=== PATIENT | female | born 1945 | race Caucasian/White ===

== ENCOUNTER 2016-12-20 05:30 | Emergency (ER) | payer MEDICARE, OTHER ==
--- NOTE | 2016-12-20 06:07 | ERNOTE ---
Chest Pain/Cardiac HPI Date of Service: 12/20/16 Chief Complaint: Chest Pain Time Seen by Provider: 12/20/16 05:31 Source: patient Exam Limitations: no limitations Immunizations: IMMUNIZATION HX Immunizations Up to Date Yes History of Influenza Vaccine No Hx Pneumococcal Vaccination No Allergies/Adverse Reactions: Allergies codeine Allergy (Intermediate, Verified 12/20/16 05:50) Hives Penicillins Allergy (Intermediate, Verified 12/20/16 05:50) Hives Home Medications: HOME MEDICATIONS Ibuprofen [Motrin] 600 mg PO TID PRN #30 tab 12/20/16 [Last Taken Unknown] Latanoprost 2.5 ml OP DAILY 12/20/16 [Last Taken Unknown] Philip-3/Dha/Epa/Fish Oil [Fish Oil 1,000 mg Softgel] 1,000 mg PO BID 12/20/16 [ Last Taken Unknown] Triamterene [Dyrenium] 50 mg PO DAILY 12/20/16 [Last Taken Unknown] Narrative: Here for a right sided mid back and right sided chest pain just under right breast which began at 0 100 today and is rated as an 8 out of 10. She denies any shortness of breath or trauma or diaphoresis. She states that the severe right-sided chest pain woke her up from sleep. Review of Systems - Review of Systems Constitutional: Present: no symptoms reported EYE: Present: no symptoms reported ENT: Present: no symptoms reported Respiratory: Present: no symptoms reported Cardiology: Present: other - H and has chest wall pain on the right side Gastrointestinal/Abdominal: Present: no symptoms reported Genitourinary: Present: no symptoms reported Musculoskeletal: Present: no symptoms reported Skin: Present: no symptoms reported - Patient's Past Medical History Patient History - Medical: No pertinent hx Patient History - Cardiac/Respiratory: Hyperlipidemia Patient History - Cancer: No Hx of Cancer Patient History - Surgical Procedures: Hysterectomy Patient History - Other: None - Family History Mother Family History - Medical: Diabetes Type 2 Insulin Dependent Family History - Cardiac/Respiratory: No pertinent hx Family History - Cancer: No pertinent family hx Brother Family History - Cardiac/Respiratory: Myocardial Infarction Family History - Cancer: Lung - Social History Living Situations: alone Abuse History: No History of abuse Psych History: No pertinent hx Smoking Status: Former smoker Have you smoked in the past 12 months: No Do you dip or chew tobacco: No Patient requests Smoking Cessation Consult: No Initiate information on Smoking Cessation: No Alcohol Use: occasionally Drug Use: none - Immunizations Immunizations Up to Date: Yes Hx Pneumococcal Vaccination: No History of Influenza Vaccine: No Physical Exam - Physical Exam General Appearance: Present: wd/wn, alert, no apparent distress Head Exam: Present: normal inspection Neck: Present: normal inspection, nontender Respiratory: Present: no respiratory distress, normal breath sounds, no accessory muscle use, chest nontender, lungs clear Cardiovascular/Chest: Present: regular rate, rhythm, no murmur, normal peripheral pulses, other - this patient has chest wall pain on my examination upon pressure on the right side in the midclavicular line of ribs #67 and 8. There appears to be no bruising or deformity or crepitus there are no vesicular lesions in the distribution where the patient has pain. Patient also has pain in the right paravertebral area in the thoracic region corresponding to ribs # 67 and 8. EKG at the time the patient had her chest pain is a normal sinus rhythm no ST-T changes Back Exam: Present: normal inspection, no CVA tenderness Extremity Exam: Present: normal inspection, normal range of motion ED Progress - Results and Orders Patient's Lab Results:: I have reviewed the patient's lab results. - Vital Signs Patient's Vital Signs:: I have reviewed the patient's vital signs. Vital Signs: Vital Signs 12/20/16 05:39 Temperature 36.4 C L Pulse Rate 56 L Respiratory 18 Rate Blood Pressure 177/75 O2 Sat by Pulse 99 Oximetry - EKG EKG: NSR - this patient's EKG reveals normal sinus rhythm. - X-Ray X-Ray #1 X-Ray: chest - Progress/Reassessment Chief Complaint: Chest Pain Plan - Plan Plan: Based on my examination of this patient's clinical picture it is this examiner' s opinion that the patient has a condition called costochondritis. She is acutely tender in the right chest wall region. I am able to reproduce the exact kind of pain that she is having. She will be treated accordingly. Departure Clinical Impression: Costochondritis, acute - Departure Disposition: Home self-care Condition: Stable Instructions: Costochondritis, [id number] Prescriptions: Ibuprofen [Motrin] 600 mg PO TID PRN #30 tab PRN Reason: Pain
[2016-12-20 06:13] LABS: Hematocrit 37.7 % (37.0-47.0); Hemoglobin 13.1 gm/dL (12.5-16.0); Mean Cell Volume 93.1 fl (78-100); Mean Corpuscular Hemoglobin 32.3 pg (27-31); Mean Corpuscular Hgb Conc 34.7 g/dl (32-36); Mean Platelet Volume 9.9 fl (6.0-9.5); Neutrophil # 4.9 K/mm3 (1.3-6.0); Neutrophil % 80.3 % (42-75.0); Platelet Count 240 K/mm3 (150-450); Red Blood Count 4.05 M/mm3 (4.2-5.4); Red Cell Distribution Width 11.6 % (11.5-14.0); White Blood Count 6.1 K/mm3 (4.0-10.5)
[2016-12-20 06:39] LABS: ALT 30 U/L (19-67); AST 25 U/L (0-48); Albumin * 3.7 gm/dl (3.4-5.0); Alkaline Phosphatase * 51 U/L (50-170); Anion Gap 16.2 mmol/L (6.8-13.8); Bilirubin, Total 0.4 mg/dL (0.0-1.1); Blood Urea Nitrogen 19 mg/dL (3-23); CKMB 1.5 ng/mL (0.0-9.0); Ca. Corrected For Albumin 8.8 mg/dL (8.4-10.2); Calcium * 8.9 mg/dL (7.9-10.9); Carbon Dioxide 27.2 mmol/L (24-32.6); Chloride 97 mmol/L (97-106); Glucose * 133 mg/dL (70-110); Potassium 3.4 mmol/L (3.4-4.6); Sodium 137 mmol/L (132-142); Total Protein 7.3 gm/dL (6.2-8.2); Troponin I Less than 0.017 ng/ml (0.00-0.10)
[2016-12-20] MEDS ORDERED: ONDANSETRON 4 MG TAB.RAPDIS ONE (06:39)
[2016-12-20] MEDS ORDERED: ONDANSETRON 4 MG TAB.RAPDIS PO ONE (06:40)
[2016-12-20 06:52] VITALS: BP 154/82
[2016-12-20] MEDS ORDERED: KETOROLAC TROMETHAMINE 30 MG/ML VIAL ONE (06:54)
[2016-12-20] MEDS ORDERED: KETOROLAC TROMETHAMINE 30 MG/ML VIAL IM ONE ×2 (06:55→06:58)
== END 2016-12-20 07:13 | disposition home or self-care (01) ==
LOC: ER 05:30
DX: M94.0 Chondrocostal junction syndrome [Tietze] (principal)

== ENCOUNTER 2016-12-21 19:46 | Observation (INO) | payer MEDICARE, OTHER ==
--- NOTE | 2016-12-21 21:43 | ERNOTE ---
Abdominal HPI - General Chief Complaint: Abdominal Pain Time Seen by Provider: 12/21/16 20:47 Source: patient Exam Limitations: no limitations - Immun/Allergies/Home Medications Immunizatons: IMMUNIZATION HX Immunizations Up to Date No History of Influenza Vaccine No Hx Pneumococcal Vaccination No Allergies/Adverse Reactions: Allergies codeine Allergy (Intermediate, Verified 12/20/16 05:50) Hives Penicillins Allergy (Intermediate, Verified 12/20/16 05:50) Hives Home Medications: HOME MEDICATIONS Ibuprofen [Motrin] 600 mg PO TID PRN #30 tab 12/20/16 [Last Taken Unknown] Latanoprost 2.5 ml OP DAILY 12/20/16 [Last Taken Unknown] [place]-3/Dha/Epa/Fish Oil [Fish Oil 1,000 mg Softgel] 1,000 mg PO BID 12/20/16 [ Last Taken Unknown] Triamterene [Dyrenium] 50 mg PO DAILY 12/20/16 [Last Taken Unknown] - History of Present Illness Narrative: Pt had right subscapular pain a few days ago. Yesterday she was seen in this ED with right lower rib/ RUQ abdominal pain, labs were unremarkable and she was dx with costochondritis and told to follow up with her PCP. Her PCP ordered an u/s and CBC today. U/S showed tiny gallstones, sludge, gallbladder wall edema and tiny pericholecystic fluid, WBC 21k. She was told to present to the ED, since they do not have a surgeon commercial sales consultant tonight she did not go to [facility] where the studies were done today and came back here. Timing: getting worse Quality: severe, aching Activities at Onset: none Modifying Factors - (Improves): Present: analgesics - helped only a little Modifying Factors - (Worsens): Present: movement Associated Symptoms: Present: nausea. Absent: vomiting Prior Abdominal Problems: Present: none Prior Treatment: Present: recently seen, treated by physician, currently on antibiotics Review of Systems - Review of Systems Constitutional: Absent: fever, chills EYE: Present: no symptoms reported ENT: Present: no symptoms reported Respiratory: Absent: shortness of breath, cough Cardiology: Absent: chest pain Gastrointestinal/Abdominal: Present: See HPI, nausea, abdominal pain, other - was NPO before her U/S but has had a bottle of water since then.. Absent: vomiting, diarrhea Genitourinary: Absent: frequency, dysuria Musculoskeletal: Present: back pain - right subscapular Skin: Present: no symptoms reported Neurological: Present: no symptoms reported Endocrine: Present: no symptoms reported Hematologic/Lymphatic: Present: no symptoms reported Psych: Present: no symptoms reported - Patient's Past Medical History Patient History - Medical: No pertinent hx Patient History - Cardiac/Respiratory: Hyperlipidemia Patient History - Cancer: No Hx of Cancer Patient History - Surgical Procedures: Hysterectomy Patient History - Other: None LMP (females 10-50): Menopausal - Family History Mother Family History - Medical: Diabetes Type 2 Insulin Dependent Family History - Cardiac/Respiratory: No pertinent hx Family History - Cancer: No pertinent family hx Brother Family History - Cardiac/Respiratory: Myocardial Infarction Family History - Cancer: Lung - Social History Abuse History: No History of abuse Psych History: No pertinent hx Smoking Status: Former smoker Have you smoked in the past 12 months: No Do you dip or chew tobacco: No Smoking Stop Date: 12/21/66 Patient requests Smoking Cessation Consult: No Initiate information on Smoking Cessation: No - Immunizations Immunizations Up to Date: No Hx Pneumococcal Vaccination: No History of Influenza Vaccine: No Physical Exam - Physical Exam General Appearance: Present: wd/wn, alert, no apparent distress Head Exam: Present: normal inspection Ears, Nose, Throat: Present: normal ENT inspection Neck: Present: normal inspection, nontender, supple Respiratory: Present: no respiratory distress, normal breath sounds, lungs clear Cardiovascular/Chest: Present: regular rate, rhythm, no murmur, normal peripheral pulses Gastrointestinal/Abdominal: Present: tenderness - RUQ most tender, also tender LUQ and RLQ. , abnormal bowel sounds - hypoactive, guarding - mild. Absent: distended, rebound Extremity Exam: Present: normal inspection, non-tender, normal range of motion, no edema Neurological Exam: Present: alert, oriented, normal mood/affect, no motor/ sensory deficits Skin Exam: Present: normal color, warm/dry Lymphatic Exam: Present: no adenopathy ED Progress - Results and Orders Patient's Lab Results:: I have reviewed the patient's lab results. Results and Orders: labs from [facility] show WBC: 21.2, H/H 14/41, PLATELETS: 260, 88% Neuts. CMP WNL except slight elevation of ALT at 37, and biliruben 1.7 - Vital Signs Patient's Vital Signs:: I have reviewed the patient's vital signs. Vital Signs: Vital Signs 12/21/16 20:17 Temperature 36.5 C Pulse Rate 90 Respiratory 18 Rate Blood Pressure 113/75 O2 Sat by Pulse 95 Oximetry - CT/Ultrasound CT/Ultrasound Narrative: U/S report from [facility]: tiny gallstones and sludge in the gallbladder assoc with gallbladder wall edema and questionable tiny pericholecystic fluid collection. CBD normal size, no hepatic duct dilation, no biliary obstruction. pancreas and right kidney normal. - Progress/Reassessment Chief Complaint: Abdominal Pain Progress Note-Subjective: 12/21/16 21:[address] Gregorio and he requested we admit the patient to the hospitalist and he will see the patient in the morning. Spoke with Debi MYERS hospitalist. She agrees with admit. Departure Clinical Impression: Cholecystitis with cholelithiasis Qualifiers: Cholelithiasis location: gallbladder Cholecystitis acuity: acute Biliary obstruction: without biliary obstruction Qualified Code(s): K80.00 - Calculus of gallbladder with acute cholecystitis without obstruction - Departure Disposition: [facility] Condition: Good
--- NOTE | 2016-12-21 21:55 | HP ---
Chief Complaint - Chief Complaint Date of Service: 12/21/16 Time of Service: 21:54 Chief Complaint: Abdominal pain History of Present Illness: 71 years old female adm to the hospital with reports of right upper quadrant pain radiating to the umbilicus x 2day. PMH significant for glaucoma and chronic edema. Pt stated she was at [facility] ER yesterday for abdominal pain. She was instructed to follow up with PCP upon discharge. She saw PCP did labs and US abdomen. She continued to have abdominal pain that was getting progressively worst. she was called by PCP office with lab results and instructed to come to the ER. She have significant increased of WBC since yesterday from 6k--->22K. U/ S report from [facility]: tiny gallstones and sludge in the gallbladder assoc with gallbladder wall edema and questionable tiny pericholecystic fluid collection. CBD normal size, no hepatic duct dilation, no biliary obstruction. pancreas and right kidney normal.12/21/16 WBC 6k----> 21.2K trending up. Pt denies fever, chills, palpitation, cough, nausea or vomiting. Plan of care discussed with pt she verbalized understanding and agrees. - Patient's Past Medical History Patient History - Medical: No pertinent hx, Glaucoma, Other - chronic edema Patient History - Cardiac/Respiratory: Hyperlipidemia Patient History - Cancer: No Hx of Cancer Patient History - Surgical Procedures: Hysterectomy Patient History - Other: None LMP (females 10-50): Menopausal - Family History Mother Family History - Medical: Diabetes Type 2 Insulin Dependent Family History - Cardiac/Respiratory: No pertinent hx Family History - Cancer: No pertinent family hx Brother Family History - Cardiac/Respiratory: Myocardial Infarction Family History - Cancer: Lung - Social History Living Situations: alone Abuse History: No History of abuse Psych History: No pertinent hx Smoking Status: Former smoker Have you smoked in the past 12 months: No Do you dip or chew tobacco: No Smoking Stop Date: 12/21/66 Patient requests Smoking Cessation Consult: No Initiate information on Smoking Cessation: No - Immunizations Immunizations Up to Date: No Hx Pneumococcal Vaccination: No History of Influenza Vaccine: No Review Of Systems (GEN) - Review of Systems Generalized/Overall Review: Present: No Symptoms Reported EENTM: Present: No Symptoms Reported Respiratory: Present: No Symptoms Reported Cardiac: Present: No Symptoms Reported Abdominal: Present: Abdominal Pain, Other - No appetite Genitourinary: Present: No Symptoms Reported Musculoskeletal: Present: No Symptoms Reported Neurological: Present: No Symptoms Reported Skin: Present: No Symptoms Reported Endocrine: Present: No Symptoms Reported Immunizations: IMMUNIZATION HX Immunizations Up to Date No History of Influenza Vaccine No Hx Pneumococcal Vaccination No Allergies/Adverse Reactions: Allergies Allergy/AdvReac Type Severity Reaction Status Date / Time codeine Allergy Intermediate Hives Verified 12/20/16 05:50 Penicillins Allergy Intermediate Hives Verified 12/20/16 05:50 Home Medications: HOME MEDICATIONS Ibuprofen [Motrin] 600 mg PO TID PRN #30 tab 12/20/16 [Last Taken Unknown] Latanoprost 2.5 ml OP DAILY 12/20/16 [Last Taken Unknown] [place]-3/Dha/Epa/Fish Oil [Fish Oil 1,000 mg Softgel] 1,000 mg PO BID 12/20/16 [ Last Taken Unknown] Triamterene [Dyrenium] 50 mg PO DAILY 12/20/16 [Last Taken Unknown] Exam - Exam Vital Signs: Vital Signs - Last Taken Temp 36.5 C 12/21/16 20:17 Pulse 74 12/21/16 21:32 Resp 13 12/21/16 21:32 BP 116/74 12/21/16 21:32 Pulse Ox 91 12/21/16 21:32 Constitutional: Present: Alert, Oriented x3, Cooperative, Well developed, No distress, Elderly ENT Exam: Present: hearing grossly normal Eye Exam: bilateral eye: normal inspection, other Back Exam: Present: normal inspection, no CVA tenderness Breasts: Present: Exam deferred Respiratory: Present: chest non-tender, lungs clear, normal breath sounds, no respiratory distress Cardiovascular/Chest: Present: normal peripheral pulses, regular rate, rhythm, no chest tenderness, no edema Peripheral Pulses: dorsalis-pedis (R): 3+, dorsalis-pedis (L): 3+ Abdomen: Present: Normal bowel sounds, soft, nondistended, tender, guarding, positive Varghese sign, hypoactive /Rectal: Present: Exam deferred Extremity: Present: normal range of motion, non-tender, normal inspection, no calf tenderness Skin Exam: Present: warm/dry Neurologic: Present: oriented x 3 Appearance: Present: appropriate appearance, appropriate insight Eye contact: Present: cooperative, good eye contact Thoughts: Present: normal thought pattern, no apparent hallucination Assessment/Plan - Narrative Narrative: Acute cholecystitis RUQ abdominal pain with +Varghese sign. Outside facility US ABD: Tiny gallstones and sludge in the gallbladder assoc with gallbladder wall edema and questionable tiny pericholecystic fluid collection. CBD normal size, no hepatic duct dilation, no biliary obstruction. pancreas and right kidney normal. Continue with IVF Keep NPO until seen by Surgeon On adm WBC 21.2, neutrophils 88.6, ALT/ AST--> 37/30 IV Flagyl x1 was given in ER. Discussed Antbx with Dr. Bailey Mefoxin 2g Q6 Glaucoma may resume home dose of eye drop. Code status: Full VTE ppx: SCD and ambulate Total Time 45 minutes, previous records available to me were reviewed and case discussed with Dr. Bailey. - Assessment/Plan (1) Cholecystitis with cholelithiasis Problem: Acute Qualifiers: Cholelithiasis location: gallbladder Cholecystitis acuity: acute Biliary obstruction: without biliary obstruction Qualified Code(s): K80.00 - Calculus of gallbladder with acute cholecystitis without obstruction (2) Costochondritis, acute Problem: Acute (3) Glaucoma Problem: Chronic
[2016-12-21] MEDS ORDERED: NORMAL SALINE 1,000 ML IV PRN (23:09)
[2016-12-22] MEDS: metroNIDAZOLE/SODIUM CHLORIDE 500 MG/100 ML BAG IV SCH ×2 (00:11→05:59)
[2016-12-22] MEDS: POTASSIUM CHLORIDE 20 MEQ in DEXTROSE 5%-NORMAL SALINE 1,000 ML IV SCH ×2 (00:33→09:02)
[2016-12-22] MEDS: CEFOXITIN SODIUM 2 GM in DEXTROSE 5 % IN WATER 100 ML IV SCH ×12 (01:04→19:33)
[2016-12-22 05:19] LABS: Hematocrit 36.5 % (37.0-47.0); Hemoglobin 12.5 gm/dL (12.5-16.0); Mean Cell Volume 95.1 fl (78-100); Mean Corpuscular Hemoglobin 32.6 pg (27-31); Mean Corpuscular Hgb Conc 34.2 g/dl (32-36); Mean Platelet Volume 10.2 fl (6.0-9.5); Neutrophil # 12.7 K/mm3 (1.3-6.0); Neutrophil % 84.7 % (42-75.0); Platelet Count 208 K/mm3 (150-450); Red Blood Count 3.84 M/mm3 (4.2-5.4); Red Cell Distribution Width 12.3 % (11.5-14.0)
[2016-12-22 06:30] LABS: BUN/Creatinine Ratio 10.8 (9.0-21.6); Calcium * 8.7 mg/dL (7.9-10.9); Carbon Dioxide 31.1 mmol/L (24-32.6); Estimated Creat Clear 38.9; Potassium 3.1 mmol/L (3.4-4.6)
[2016-12-22] MEDS ORDERED: POTASSIUM CHLORIDE 40 MEQ in DEXTROSE 5%-NORMAL SALINE 980 ML IV SCH (08:15)
[2016-12-22] MEDS ORDERED: LATANOPROST 25 DROP BTL OP SCH (09:00)
[2016-12-22] MEDS: POTASSIUM CHLORIDE 40 MEQ in DEXTROSE 5%-NORMAL SALINE 980 ML IV SCH ×2 (09:01→20:31)
--- NOTE | 2016-12-22 14:49 | CONS ---
[facility] - General Date of Service: 12/22/16 Narrative: This patient presented to the ER last night with a several day history of RUQ pain originally thought to be costochondritis. She was seen by her primary who ordered an ultrasound that showed small gallstones and sludge, wall thickening, a trace of pericholecystic fluid and a normal common bile duct. Her white count had risen to 20K. She was admitted with a diagnosis of acute cholecystitis, rehydration, pain control and a brief cooling off period. She states that her pain has improved significantly from last night. Her WBC has come down to 15K. Source: patient, RN/MD - History of Present Illness Allergies/Adverse Reactions: Allergies codeine Allergy (Intermediate, Verified 12/20/16 05:50) Hives Penicillins Allergy (Intermediate, Verified 12/20/16 05:50) Hives Home Medications: Home Medications Medication Instructions Recorded Last Taken Latanoprost 2.5 ml OP DAILY 12/20/16 Unknown Virgie-3/Dha/Epa/Fish Oil [Fish Oil 1,000 mg PO BID 12/20/16 Unknown 1,000 mg Softgel] Triamterene [Dyrenium] 50 mg PO DAILY 12/20/16 Unknown - Patient's Past Medical History Patient History - Medical: No pertinent hx, Glaucoma, Other - chronic edema Patient History - Cardiac/Respiratory: Hyperlipidemia Patient History - Cancer: No Hx of Cancer Patient History - Surgical Procedures: Hysterectomy Patient History - Other: None LMP (females 10-50): Menopausal - Family History Mother Family History - Medical: Diabetes Type 2 Insulin Dependent Family History - Cardiac/Respiratory: No pertinent hx Family History - Cancer: No pertinent family hx Brother Family History - Medical: Diabetes Type 1 Family History - Cardiac/Respiratory: Myocardial Infarction Family History - Cancer: Lung - Social History Living Situations: alone Abuse History: No History of abuse Psych History: No pertinent hx Smoking Status: Former smoker Have you smoked in the past 12 months: No Do you dip or chew tobacco: No Smoking Start Date: 02/08/63 Smoking Stop Date: 12/21/66 Patient requests Smoking Cessation Consult: No Initiate information on Smoking Cessation: No - Immunizations Immunizations Up to Date: No Hx Pneumococcal Vaccination: No History of Influenza Vaccine: No Procedures CATARAC PHACOEMULS/ASPIR (02/23/11) COLONOSCOPY (09/01/06) ENDO EXCISION/DEST OF LESION OR TISSUE OF STOMACH (08/29/08) ESOPHAGOGASTRODUODENOSCOPY [EGD] W/CLOSED BIOPSY (09/01/06) INSERT LENS AT CATAR EXT (02/23/11) Medications - Medications Current Medications: Current Medications Cefoxitin Sodium 2 gm/ (Dextrose/Water) 100 mls @ 200 mls/hr IV Q6H HUANG PRN Reason: Protocol Stop: 01/21/17 00:31 Last Admin: 12/22/16 12:12 Dose: 200 mls/hr Potassium Chloride 40 meq/ (Dextrose/Sodium Chloride) 1,000 mls @ 125 mls/hr IV .Q8H HUANG Stop: 01/21/17 08:31 Last Admin: 12/22/16 09:01 Dose: 125 mls/hr Review of Systems - Review of Systems Abdominal: Present: Abdominal Pain Misc: All systems neg except as marked Physical Examination - Exam Vital Signs: Vital Signs - Last Taken Temp 36.8 C 12/22/16 11:14 Pulse 86 12/22/16 11:14 Resp 18 12/22/16 11:14 BP 106/58 12/22/16 11:14 Pulse Ox 96 12/22/16 11:14 O2 Oxygen Delivery Method Room Air Constitutional: Present: Alert, Oriented x3, Cooperative, Well developed, Well nourished, No distress ENT Exam: Present: normal ENT inspection Eye Exam: bilateral eye: normal inspection Neck: Present: full range of motion, supple Respiratory: Present: no respiratory distress, no accessory muscle use Abdomen: Present: soft, nondistended, tender - RUQ /Rectal: Present: Exam deferred Skin Exam: Present: normal color, warm/dry Neurologic: Present: no motor/sensory deficits - Results and Findings: Lab/Microbiology results last 24 hrs: Abnormal/Pending Laboratory Last 24 HRS 12/22/16 12/22/16 05:45 05:17 WBC 15.0 H D RBC 3.84 L Hct 36.5 L MCH 32.6 H MPV 10.2 H Immature Gran % (Auto) 0.50 H Immature Gran # (Auto) 0.08 H Neutrophils % 84.7 H Lymphocytes % 9.0 L Neutrophils # 12.7 H Lymphocytes # 1.4 L Potassium 3.1 L Est GFR (Non-Af Amer) 56 L Random Glucose 129 H - Assessments/Findings (1) Cholecystitis with cholelithiasis Diagnosis(s): Recommend laparoscopic cholecystectomy. The options, risks, and benefits of the procedure were reviewed fully. She seems to understand, asks appropriate questions, and desires to proceed. Problem: Acute Qualifiers: Cholelithiasis location: gallbladder Cholecystitis acuity: acute Biliary obstruction: without biliary obstruction Qualified Code(s): K80.00 - Calculus of gallbladder with acute cholecystitis without obstruction
[2016-12-22] MEDS ORDERED: RINGER'S SOLUTION,LACTATED 1,000 ML IV ONE ×3 (16:55→17:44)
[2016-12-22] MEDS ORDERED: BUPIVACAINE HCL 50 ML VIAL IJ ONE ×2 (17:15)
--- NOTE | 2016-12-22 18:56 | OR ---
Operative Report - Dictated Report Narrative: Date: 12/22/2016 Preop dx: Acute cholecystitis Postop dx: same Procedure: Laparoscopic cholecystectomy Staff surgeon: Kwabena Ortiz MD Anesthesia: GETA EBL: 50cc Drains: none Specimens: gallbladder Description: Following the smooth induction of general endotracheal the abdomen was prepped and draped in a sterile fashion. All port sites were anesthetized with marcaine prior to incision. The abdomen was entered through a 5mm infraumbilical incision using a blunt port with a scope within the lumen of the trocar. The abdomen was insufflated to a pressure of 15mmHg. A superior midline 12mm port was inserted under direct vision as was two right flank 5mm ports. Omentum and transverse colon were densely adherent to the undersurface of the fundus. These were meticulously taken down with blunt dissection. There was a thick rind of fibrin on the omentum. Once exposed the fundus was cannulated percutaneously with a needle and drained of bilious fluid. This allowed a grasper on the fundus which was elevated toward the diaphragm. The duodenum was adherent to the infundibulum and this was taken down with blunt dissection. The stomach was adherent to the medial gallbladder and undersurface of the liver to the ligamentum teres and these were taken down with blunt dissection. The gallbladder was quite thickened and hepatized. The infundibulum was grasped for countertraction. The cystic duct was isolated and clipped with four clips and divided. The cystic artery was isolated doubly clipped and divided. The gallbladder was then taken out of the fossa with blunt, scissor, and electrocautery dissection. Once liberated the gallbladder was placed in an endocatch bag. The superior midline port site was enlarged to allow egress of this significantly enlarged gallbladder. The peritoneal cavity was once again inspected. Hemostasis appeared adequate. The was no apparent bile leak. No significant purulence was encountered during the course of this procedure, only inflammatory changes, and a drain was deemed unnecessary. The pneumoperitoneum was released and port sites removed. The fascia of the upper midline port was closed with interrupted 0 Vicryl suture. Incisions closed with david and sterile dressings applied. The patient tolerated the procedure well without apparent complications and was discharged from the operating room in stable condition.
[2016-12-22] MEDS ORDERED: MORPHINE SULFATE 4 MG/ML SYRG IV PRN (18:59)
[2016-12-22] MEDS ORDERED: ONDANSETRON HCL/PF 2 MG/ML VIAL IV PRN (19:01)
[2016-12-22] MEDS: KETOROLAC TROMETHAMINE 15 MG/ML VIAL IV SCH (19:52)
[2016-12-22] MEDS: LATANOPROST 25 DROP BTL OP SCH (20:33)
[2016-12-23] MEDS: KETOROLAC TROMETHAMINE 15 MG/ML VIAL IV SCH ×4 (01:16→21:12)
[2016-12-23] MEDS: CEFOXITIN SODIUM 2 GM in DEXTROSE 5 % IN WATER 100 ML IV SCH ×6 (03:24→21:12)
[2016-12-23] MEDS: POTASSIUM CHLORIDE 40 MEQ in DEXTROSE 5%-NORMAL SALINE 980 ML IV SCH ×2 (05:08→09:27)
[2016-12-23 05:33] LABS: Hematocrit 34.6 % (37.0-47.0); Hemoglobin 11.6 gm/dL (12.5-16.0); Mean Cell Volume 96.1 fl (78-100); Mean Corpuscular Hemoglobin 32.2 pg (27-31); Mean Corpuscular Hgb Conc 33.5 g/dl (32-36); Mean Platelet Volume 10.6 fl (6.0-9.5); Neutrophil # 10.5 K/mm3 (1.3-6.0); Neutrophil % 94.6 % (42-75.0); Platelet Count 244 K/mm3 (150-450); Red Cell Distribution Width 12.1 % (11.5-14.0); White Blood Count 11.1 K/mm3 (4.0-10.5)
[2016-12-23 05:45] LABS: BUN/Creatinine Ratio 8.2 (9.0-21.6); Calcium * 8.3 mg/dL (7.9-10.9); Carbon Dioxide 24.2 mmol/L (24-32.6); Estimated Creat Clear 32.5; Potassium 4.2 mmol/L (3.4-4.6)
--- NOTE | 2016-12-23 06:14 | PN ---
Subjective - Date and Time Seen Date: 12/23/16 Time: 06:07 Subjective Narrative: Mrs. Acuña examined this am. She is alert and in no distress. POD # 1 for lap Cholecystectomy. Pain is well controlled with meds. Denies n/v, abd pain. Has not ambulated much. No other concerns. Objective - Vitals Vitals: Last Vital Signs Temp 36.7 C 12/23/16 02:55 Pulse 82 12/23/16 04:55 Resp 16 12/23/16 04:55 BP 120/70 12/23/16 04:55 Pulse Ox 95 12/23/16 04:55 - Abnormal Lab Findings Abnormal Lab Findings: Abnormal Lab Results 12/22/16 12/23/16 12/23/16 Range/Units 05:45 05:29 05:29 WBC 11.1 H D (4.0-10.5) K/mm3 RBC 3.60 L (4.2-5.4) M/mm3 Hgb 11.6 L (12.5-16.0) gm/dL Hct 34.6 L (37.0-47.0) % MCH 32.2 H (27-31) pg MPV 10.6 H (6.0-9.5) fl Immature Gran % (Auto) 0.60 H (0.001-0.429) % Immature Gran # (Auto) 0.07 H (0.000-0.0310) K/mm3 Neutrophils % 94.6 H (42-75.0) % Lymphocytes % 3.3 L (20-51) % Neutrophils # 10.5 H (1.3-6.0) K/mm3 Lymphocytes # 0.4 L (1.5-3.5) k/mm3 Potassium 3.1 L (3.4-4.6) mmol/L Est GFR (Non-Af Amer) 56 L 46 L (60-130) mL/min BUN/Creatinine Ratio 8.2 L (9.0-21.6) Random Glucose 129 H 213 H D (70-110) mg/dL - Exam Constitutional: Present: Alert, Oriented x3, Cooperative, No distress ENT Exam: Present: normal ENT inspection Neck: Present: non-tender, full range of motion, supple Breasts: Present: Exam deferred Respiratory: Present: lungs clear, No rales, No wheezing Cardiovascular/Chest: Present: regular rate, rhythm, no chest tenderness, no edema Abdomen: Present: soft, other - hypoactive bowel sounds. /Rectal: Present: Exam deferred Extremity: Present: normal range of motion, non-tender, normal inspection Skin Exam: Present: warm/dry, no cyanosis Lymphatic: Present: no adenopathy Neurologic: Present: alert, normal mood/affect, oriented x 3 Appearance: Present: appropriate appearance, appropriate insight Eye contact: Present: cooperative, good eye contact, normal speech Thoughts: Present: normal thought pattern, no apparent hallucination Assessment/Plan - Problems/Diagnosis (1) Cholecystitis with cholelithiasis Problem: Acute Qualifiers: Cholelithiasis location: gallbladder Cholecystitis acuity: acute Biliary obstruction: without biliary obstruction Qualified Code(s): K80.00 - Calculus of gallbladder with acute cholecystitis without obstruction Narrative: Abd. US had shown: small gallstones & sludge, wall thickening. Was started on Cefoxitin 2 mg q 8h. Had Lap Cholecystectomy on 12/22. Surgery following pt. WBC 6000-->21,200-->15,000-->11,100. Continue supportive cares with: IVF hydration, pain mgt. Consider for discharge if B/P stable, afebrile, n/v absent, labs are in normal range, pain is manageable along with activity toleration.
[2016-12-23] MEDS ORDERED: MORPHINE SULFATE 2 MG/ML DISP.SYRIN IV PRN (06:45)
--- NOTE | 2016-12-23 15:15 | PN ---
Subjective - Date and Time Seen Date: 12/23/16 Time: 15:08 Subjective Narrative: POD1 s/p lap jacky for acute cholecystitis States doing well. Tolerated breakfast well. Has ambulated. Minimal discomfort. Objective - Review of Systems Misc: All systems neg except as marked - Vitals Vitals: Last Vital Signs Temp 36.7 C 12/23/16 09:59 Pulse 81 12/23/16 09:59 Resp 16 12/23/16 09:59 BP 130/70 12/23/16 09:59 Pulse Ox 98 12/23/16 09:59 - Abnormal Lab Findings Abnormal Lab Findings: Abnormal Lab Results 12/23/16 12/23/16 Range/Units 05:29 05:29 WBC 11.1 H D (4.0-10.5) K/mm3 RBC 3.60 L (4.2-5.4) M/mm3 Hgb 11.6 L (12.5-16.0) gm/dL Hct 34.6 L (37.0-47.0) % MCH 32.2 H (27-31) pg MPV 10.6 H (6.0-9.5) fl Immature Gran % (Auto) 0.60 H (0.001-0.429) % Immature Gran # (Auto) 0.07 H (0.000-0.0310) K/mm3 Neutrophils % 94.6 H (42-75.0) % Lymphocytes % 3.3 L (20-51) % Neutrophils # 10.5 H (1.3-6.0) K/mm3 Lymphocytes # 0.4 L (1.5-3.5) k/mm3 Est GFR (Non-Af Amer) 46 L (60-130) mL/min BUN/Creatinine Ratio 8.2 L (9.0-21.6) Random Glucose 213 H D (70-110) mg/dL - Exam Constitutional: Present: Alert, Oriented x3, Cooperative, No distress Abdomen: Present: other - Dressings C/D/I Assessment/Plan Plan Narrative: A: Satisfactory POD1 acute cholecystitis P: given the severity of inflammatory changes found at operation will do another 24 hours of antibiotics. If doing well tomorrow will dismiss with an additional 5 days of oral antibiotics. - Problems/Diagnosis (1) Cholecystitis with cholelithiasis Problem: Acute Qualifiers: Cholelithiasis location: gallbladder Cholecystitis acuity: acute Biliary obstruction: without biliary obstruction Qualified Code(s): K80.00 - Calculus of gallbladder with acute cholecystitis without obstruction
[2016-12-23] MEDS: LATANOPROST 25 DROP BTL OP SCH (21:12)
[2016-12-24] MEDS: KETOROLAC TROMETHAMINE 15 MG/ML VIAL IV SCH ×2 (01:57→06:52)
[2016-12-24] MEDS: CEFOXITIN SODIUM 2 GM in DEXTROSE 5 % IN WATER 100 ML IV SCH ×2 (02:01)
--- NOTE | 2016-12-24 05:22 | DS ---
(1) Cholecystitis with cholelithiasis Problem: Acute Qualifiers: Cholelithiasis location: gallbladder Cholecystitis acuity: acute Biliary obstruction: without biliary obstruction Qualified Code(s): K80.00 - Calculus of gallbladder with acute cholecystitis without obstruction Description of Stay: Admission HPI 71 years old female adm to the hospital with reports of right upper quadrant pain radiating to the umbilicus x 2day. PMH significant for glaucoma and chronic edema. Pt stated she was at [facility] ER yesterday for abdominal pain. She was instructed to follow up with PCP upon discharge. She saw PCP did labs and US abdomen. She continued to have abdominal pain that was getting progressively worst. she was called by PCP office with lab results and instructed to come to the ER. She have significant increased of WBC since yesterday from 6k--->22K. U/ S report from [facility]: tiny gallstones and sludge in the gallbladder assoc with gallbladder wall edema and questionable tiny pericholecystic fluid collection. CBD normal size, no hepatic duct dilation, no biliary obstruction. pancreas and right kidney normal.12/21/16 WBC 6k----> 21.2K trending up. Pt denies fever, chills, palpitation, cough, nausea or vomiting. Plan of care discussed with pt she verbalized understanding and agrees. Hospital course description/problems. 1.) Acute Cholecystitis. Mrs. Acuña was admitted inpatient due to clinical signs and findings on the U/S concerning for Acute Cholecystitis. She received treatment with IV antibiotics- Cefotixim 2 gram q 8 hours. Her WBC trended down during the hospitalization. Surgery was consulted. She underwent laporascopic procedure on 12/22/16 without any apparent complications. Her V.S have remained stable. Laboratory studies are in the NR. N/V, Abdominal pain have been absent since operation. She has been able to tolerate activity well and is free of pain. Due to the severity of acute cholecystitis on presentation, surgery determined that she will need additional antibiotics for another 5 days. She was discharged on Levaquin 500mg PO daily x 5 days. 2.) Laporascopic Cholecystectomy. Will have pt follow-up with her PCP next week. She was provided teaching on signs of complications which warrant an immediate evaluation by the surgeon such as: fever, worsening abdominal pain, distention, persistent n/v, and drainage from the incision sites. She is to follow-up with the surgeon next week on Wed/ following this operation. She was instructed to keep the incisions dry during showers until seen next week by Dr. Ortiz. Procedures Performed: see notes below Discharge Disposition: Home self care Disposition: Home self-care Condition: Good Discharge Activity: Activity as tolerated, Other - Do not lift anything greater than 20 pounds for 6 weeks. Discharge Diet: Other - Advance diet as tolerated. Referrals: Roni Bailey MD [Primary Care Provider] - Problem Oriented Discharge Instructions to Patient/Family: Laparoscopic Cholecystectomy Additional Patient Instructions (free text): Please follow-up with your primary care doctor next week. Please make TCM appointment at discharge, if applicable. Thank you! Olivia @ [phone]. Follow-up with the Surgeon ( Dr. Ortiz) next week on Wed or Wednesday. Prescriptions (Any new or edited meds): Levofloxacin [Levaquin] 500 mg PO DAILY #5 tablet Complete Home Medications List: Complete Home Medication List: Ibuprofen [Motrin] 600 mg PO TID PRN #30 tab 12/20/16 Latanoprost 2.5 ml OP DAILY 12/20/16 [place]-3/Dha/Epa/Fish Oil [Fish Oil 1,000 mg Softgel] 1,000 mg PO BID 12/20/16 Triamterene [Dyrenium] 50 mg PO DAILY 12/20/16 Levofloxacin [Levaquin] 500 mg PO DAILY #5 tablet 12/24/16
[2016-12-24 07:13] VITALS: BP 128/74
== END 2016-12-24 10:40 | disposition home or self-care (01) ==
LOC: ER 19:46 → MS 21:35 → INTOOBSV 21:35
PROVIDERS: ADMIT Nurse Practitioner; ATTEND Internal Medicine
PROC: 0FT44ZZ Resection of Gallbladder, Percutaneous Endoscopic Approach (ICD-10-PCS; principal; 2016-12-22 17:15)
DX: K80.12 Calculus of gallbladder with acute and chronic cholecystitis without obstruction (principal); H40.9 Unspecified glaucoma; E78.5 Hyperlipidemia, unspecified; Z87.891 Personal history of nicotine dependence
CPT/HCPCS: 36415; 47562; 71020; 80048; 80053; 82553; 84484; 85025; 87040; 88304; 93005; 96365; 96366; 96367; 96372; 96375; 96376; 99284; 99285; G0378